=== PATIENT | female | born 1975 | race Caucasian/White ===

== ENCOUNTER 2016-12-04 15:53 | Emergency (ER) | payer OTHER ==
[2016-12-04 16:05] VITALS: BP 139/107
--- NOTE | 2016-12-04 16:10 | ED Physician Chart ---
History of Present Illness - General Stated Complaint: COUGH Source: Patient - History of Present Illness Allergies/Adverse Reactions: Allergies No Known Allergies Allergy (Verified 12/04/16 16:05) Home Medications: Ambulatory Orders Lutera 0.02 mg-0.1 mg 1 tab PO DAILY 02/13/13 Past History - Social History Hx Alcohol Use: Yes (daily) Family Medical History - Family Member Mother Hx Family Hypertension: Yes Hx Family Diabetes: Yes
--- NOTE | 2016-12-04 16:45 | ED Physician Chart ---
Chief Complaint/HPI - Patient Information Date Seen:: 12/04/16 Time Seen:: 16:15 Chief Complaint:: COUGH X 1 MONTH History of Present Illness:: Is 41-year-old female presents with a cough which began one month ago. The cough is productive of white to yellow sputum. She denies any hemoptysis. The patient has no fever but last week did have a fever accompanied by chills and diaphoresis. Since the cough started the patient has developed a headache. She has anterior subclavicular chest pain at the time of the cough. She also was experiencing respiratory distress with even mild exertion. She smokes one half pack of cigarettes per day. She notes that the cough is worse when she lays down. Allergies:: Allergies Allergy/AdvReac Type Severity Reaction Status Date / Time No Known Allergies Allergy Verified 12/04/16 16:05 Vitals:: Vital Signs - 8 hr 12/04/16 12/04/16 16:05 16:06 Temp 97.5 F HR 110 RR 15 BP 139/107 139/107 O2 Sat % 98 Review of Systems - Review of Systems General/Constitutional: Fever, No chills, Diaphoresis Skin: No skin lesions, No rash Head: Headache, No light-headedness Eyes: No loss of vision, No diplopia ENT: No earache, No nasal drainage, No sore throat, No tinnitus Neck: No neck pain, No swelling, No stiffness, No mass noted Cardio Vascular: Chest pain (as mentioned in the HPI the chest pain is in the anterior subclavicular region.), No palpitations, No PND, No orthopnea Pulmonary: SOB, Cough, Sputum, No wheezing GI: Nausea, No vomiting, No diarrhea, No pain, No constipation, No hematemesis G/U: No dysuria, No frequency, No hematuria 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 She denies any associated dysuria, urinary frequency or hematuria.) Endocrine: No polyuria, No polydipsia Psychiatric: Prior psych history, No suicidal ideation Allergic/Immuno: No urticaria, No angioedema Neurological: No syncope, No focal symptoms, No weakness, No paresthesia, No seizure, No confusion, No vertigo Past Medical History - Past Medical History Past Medical History: HTN, Asthma/COPD Social History: Smoker, Alcohol (drinks approximately 1 pint of alcohol per day. ), No Drug Use Surgical History: other (Surgical repair of jaw fracture. As a result) Psychiatricy History: Bipolar Family Medical History - Family Member Mother Hx Family Hypertension: Yes Hx Family Diabetes: Yes Physical Exam - Physical Examination General/Constitutional: Awake, Well-developed, well-nourished, Alert, No distress, Non-toxic appearing, Ambulatory Head: Atraumatic Eyes: Lids, conjuctiva normal, PERRL, EOMI Skin: No rash, No skin lesions, No ecchymosis, Well hydrated ENMT: External ears, nose nl, TM canals nl, Lips, teeth, gums nl, Oropharynx nl , Tonsils nl Neck: Nontender, No JVD, No nuchal rigidity, No mass, No stridor Respiratory: Nl effort/Exclusion, Clear to Auscultation (patient has) Other Respiratory comments:: Patient has decreased breath sounds throughout all lung mathew. No wheezing is noted. No rales with coarse rhonchi in the right base. Cardio Vascular: No murmur, gallop, rubs, NL S1 S2 Other Cardio Vascular comments:: Patient has a mild regular tachycardia with no murmurs gallops or rubs noted. Patient has good pulses in all 4 extremities. GI: No tenderness/rebounding/guarding, No organomegaly, No hernia, Normal BS's, Nondistended, No mass/bruits, No McBurney tenderness Other GI comments:: Rectal examination deferred at my discretion. Other comments:: Patient had mild left-sided CVA tenderness to percussion. Extremities: No tenderness or effusion, Full ROM, normal strength in all extremities, No edema Other Extremities comments:: No calf tenderness and Homans sign was negative. Labs/Radiology/EKG Results - Lab Results Results: Laboratory Tests 12/04/16 12/04/16 12/04/16 16:27 16:30 16:30 WBC 4.9 RBC 4.24 Hgb 13.5 Hct 40.3 MCV 95.1 MCH 31.9 H MCHC Differential 33.6 RDW 11.9 Plt Count 188 MPV 7.2 Neutrophils % 59.2 Lymphocytes % 27.1 Monocytes % 10.5 H Eosinophils % 2.4 Basophils % 0.8 Urine Source RANDOM Urine Color YELLOW Urine Clarity TURBID H Urine pH 6.0 Ur Specific [place] Urine Protein NEGATIVE Urine Glucose (UA) NEGATIVE Urine Ketones NEGATIVE Urine Blood NEGATIVE Urine Nitrate NEGATIVE Urine Bilirubin NEGATIVE Urine Urobilinogen 0.2 Ur Leukocyte Esterase TRACE H Urine RBC 0-1 Urine WBC 2-5 Ur Epithelial Cells MODERATE Urine Bacteria 1+ H Urine Mucus FEW Urine Test NEGATIVE The CBC shows no leukocytosis and no evidence of anemia. Platelet count is within the normal range. The urinalysis showed mild bacteria with 2-5 white cells, NOT UTI. CXR: SINGLE VIEW AP PORTABLE. NO CARDIOMEGALY OR CHF. NO PNEUMOTHORAX. NO MEDIASTINAL WIDENING. NO PLEURAL EFFUSIONS. IMPRESSION: NO ACUTE CARDIOPULMONARY FINDINGS. Assessment - Assessment General Assessment: CASE SUMMARY: this 41-year-old female presents with a one-month history of chronic cough that is productive of white to yellow sputum. She notes that laying down tends to bring on the cloth. The cough was accompanied By fever the past week. She also has experienced chills and diaphoresis over the past week. She denies any mop to assist. There is left anterior chest pain in the subcuticular region when she coughs. There is no pain present when she is not coughing. Patient also has had a headache most days of the past month. She is had nausea but no episodes of vomiting. Patient takes lisinopril for hypertension and smokes half a pack of cigarettes per day. Physical examinations her lungs were surprisingly clear. There was no evidence of CHF, peripheral edema or JVD. A single view AP chest x-ray showed no cardiomegaly or CHF. There was no mediastinal widening and there were no areas of pulmonary infiltrate or consolidation. Laboratory studies show the patient had no leukocytosis. MDM DDX FOR COUGH and DYSPNEA: NOT Pneumonia based on lab and CXR showed no pulmonary infiltrates. NO CHF based on exam and CXR showing no cardiomegaly or CHF. LOW RISK for PULMONARY EMBOLUS BASED ON Well's score of "1.5" for pulse > 100. ED Septic Shock - . Is Septic Shock (SBP<90, OR Lactate>4 mmol\\L) present?: No - <6hrs of presentation: Vital Signs: Vital Signs - 8 hr 12/04/16 12/04/16 16:05 16:06 Temp 97.5 F HR 110 RR 15 BP 139/107 139/107 O2 Sat % 98 Reassessment (Disposition) - Reassessment Reassessment Condition:: Improved - Diagnosis Diagnosis:: COUGH SECONDARY TO COMBO OF LISINOPHIL SIDE EFFECT AND HEAVY SMOKING. ED Discharge Plan - Patient Disposition Admit/Discharge/Transfer: PT DISCHARGED HOME Condition at Disposition: Stable Instructions: Back Pain, Adult, Bronchitis, [id number], Hypertension, Easy-to -Read Additional Instructions: Follow up with PMD this week.
[2016-12-04 16:48] LABS: URINE BILIRUBIN NEGATIVE (NEGATIVE); URINE BLOOD NEGATIVE (NEGATIVE); URINE COLOR YELLOW; URINE GLUCOSE (UA) NEGATIVE (NEGATIVE); URINE KETONE NEGATIVE (NEGATIVE)
[2016-12-04 16:49] LABS: URINE PROTEIN NEGATIVE (NEGATIVE); URINE UROBILINOGEN 0.2 E.U./dL (0.2 - 1.0)
[2016-12-04 16:50] LABS: URINE BACTERIA 1+ /hpf (NONE SEEN); URINE EPITHELIAL CELLS MODERATE /lpf (FEW); URINE RBC 0-1 /hpf (0-5)
[2016-12-04 16:50] LABS: % BASOPHILS 0.8 % (0.0-2.0); % EOSINOPHILS 2.4 % (0.0-5.0); % LYMPHOCYTES 27.1 % (20.0-50.0); % MONOCYTES 10.5 % (2.0-10.0); % NEUTROPHILS 59.2 % (40.0-80.0); HEMATOCRIT 40.3 % (35.0-45.0); HEMOGLOBIN 13.5 gm/dL (11.7-15.5); MEAN CELL VOLUME 95.1 fl (81-100); MEAN CORPUSCULAR HEMOGLOBIN 31.9 pg (27.0-31.0); MEAN CORPUSCULAR HGB CONC 33.6 pg (28.0-36.0); MEAN PLATELET VOLUME 7.2 fl; PLATELET COUNT 188 Th/cmm (150-400); RED BLOOD COUNT 4.24 Mil/cmm (3.80-5.10); RED CELL DISTRIBUTION WIDTH 11.9 % (11.5-20.0); WHITE BLOOD COUNT 4.9 Th/cmm (4.8-10.8)
[2016-12-04 16:57] LABS: ALKALINE PHOSPHATASE 51 U/L (34-104); ANION GAP 12.4 (7.0-16.0); BILIRUBIN,TOTAL 0.2 mg/dL (0.3-1.0); BUN - UREA NITROGEN 20 mg/dL (7-25); BUN/CREATININE RATIO 33.3; CALCIUM SERUM 9.8 mg/dL (8.6-10.3); CARBON DIOXIDE 23.7 mEq/L (21.0-31.0); CHLORIDE 106 mEq/L (98-107); CREATININE - SERUM 0.6 mg/dL (0.6-1.2); GLUCOSE 95 mg/dL (70-105); POTASSIUM SERUM 4.1 mEq/L (3.5-5.1); SGOT 62 U/L (13-39); SGPT/ALT 45 U/L (7-52); SODIUM SERUM 138 mEq/L (136-145)
--- NOTE | 2016-12-05 09:42 | Diagnostic Imaging Report ---
Portable chest x-ray History: Cough Allowing for portable technique the heart size is normal. No focal pulmonary parenchymal processes. No hilar or mediastinal abnormalities. Impression: No acute abnormalities.
== END 2016-12-04 18:55 | disposition home or self-care (01) ==
LOC: ER 15:53
DX: R05 Cough (principal); T46.4X5A Adverse effect of angiotensin-converting-enzyme inhibitors, initial encounter; J45.909 Unspecified asthma, uncomplicated; J44.9 Chronic obstructive pulmonary disease, unspecified; F17.210 Nicotine dependence, cigarettes, uncomplicated; Y92.89 Other specified places as the place of occurrence of the external cause
CPT/HCPCS: 36415-UA; 71010-TC; 80053-TC; 81001-TC; 81025-TC; 85025-TC